=== PATIENT | female | born 1995 | race Caucasian/White ===

== ENCOUNTER 2023-04-12 20:54 | Emergency (ER) | payer OTHER ==
[2023-04-12 21:02] VITALS: BP 114/63; PULSE 77; RESP 16; TEMP 98; BMI 25.9
== END 2023-04-12 22:41 | disposition home or self-care (01) ==
LOC: JERFT 20:54
DX: K52.9 Noninfective gastroenteritis and colitis, unspecified (principal); R10.9 Unspecified abdominal pain
CPT/HCPCS: 99282-25

== ENCOUNTER 2023-04-28 21:30 | Emergency (ER) | payer OTHER ==
[2023-04-28 21:34] VITALS: BP 138/82; PULSE 72; RESP 18; TEMP 98; BMI 25.7
[2023-04-28] MEDS ORDERED: FLUORESCEIN NA 1 EA STRIP OS ONE (21:49)
[2023-04-28] MEDS ORDERED: AMOX TR/POT CLAV 875MG/125MG TABLETS (FP) PO ONE (22:22)
[2023-04-28] MEDS ORDERED: AMOX TR/POT CLAV 875MG/125MG TABLETS (FP) ONE (22:23)
== END 2023-04-28 22:41 | disposition home or self-care (01) ==
LOC: JERFT 21:30 → JER 21:30 → JERFT 22:41
DX: S01.451A Open bite of right cheek and temporomandibular area, initial encounter (principal); W54.0XXA Bitten by dog, initial encounter; Y93.K9 Activity, other involving animal care; Y92.009 Unspecified place in unspecified non-institutional (private) residence as the place of occurrence of the external cause
CPT/HCPCS: 99283-25